=== PATIENT | male | born 1965 | race Caucasian/White ===

== ENCOUNTER → 2018-11-17 | Outpatient (CLI) | payer OTHER ==
[~2018-11-17] MED LIST: COLACE100 MG PO; PERCOCET PO; XANAX 0.5 MG0.5 MG PO; ZOFRAN ODT4 MG DISSOLVE
--- NOTE | 2018-11-17 13:02 | EKG ---
[address] [address] ELECTROCARDIOGRAM REPORT Name: KIMBER SETHI Room #: [facility]#: [id number] ������������������ Admission: 11/17/18 ������������������ Attend Phys: Jelani Rodríguez MD Discharge: ������������������ Date of : 63 Report #: [id number] ����������������������������������������������������������������� [id number] THIS REPORT FOR: //name// [facility] Test Date: 2018-11-17 Test Time: 09:31:17 Pat Name: KIMBER SETHI Department: Room: Gender: M Fine Unhairer: fannie : 1965 Requested By: Jelani Rodríguez Order Number: [id number] MD: Humberto Arteaga Measurements Intervals [place] Rate: 110 P: 19 NC: 121 QRS: 2 QRSD: 78 T: 32 QT: 324 QTc: 439 Interpretive Statements Sinus tachycardia Frequent premature ventricular complexes Abnormal R-wave progression, early transition Compared to ECG 08/30/2015 07:19:40 No significant change was found Electronically Signed On 11-17-2018 13:02:32 CDT by Humberto Arteaga [email or web address] ��������������������������������������������� <ELECTRONICALLY SIGNED> ���������������������������������������� By: Humberto Arteaga MD, [facility] ��������������������������������������������� 11/17/18 1302 0 Humberto Arteaga MD, [facility] /EPI
== END | disposition home or self-care (01) ==
LOC: LITH 08:42
DX: N20.0 Calculus of kidney (principal); Z53.8 Procedure and treatment not carried out for other reasons; G47.30 Sleep apnea, unspecified; F32.9 Major depressive disorder, single episode, unspecified; F41.9 Anxiety disorder, unspecified; Z88.8 Allergy status to other drugs, medicaments and biological substances
CPT/HCPCS: 50010

== ENCOUNTER → 2018-12-01 | Outpatient (CLI) | payer OTHER | END | disposition home or self-care (01) | LOC: LITH 06:18 | DX: N20.1 Calculus of ureter (principal); I10 Essential (primary) hypertension; G47.30 Sleep apnea, unspecified; F32.9 Major depressive disorder, single episode, unspecified; F41.9 Anxiety disorder, unspecified; Z98.890 Other specified postprocedural states; Z88.8 Allergy status to other drugs, medicaments and biological substances; Z79.899 Other long term (current) drug therapy; Z79.891 Long term (current) use of opiate analgesic ==